=== PATIENT | male | born 1955 ===

== ENCOUNTER → 2018-01-05 | Outpatient (CLI) | payer OTHER ==
[~2018-01-05] VITALS: Ht 152.4 cm; Wt 90.7 kg
[~2018-01-05] MED LIST: ECONAZOLE NITRA15 GM TP; GEMFIBROZIL600 MG; GEMFIBROZIL600 MG PO; LIPITOR40 MG; LIPITOR40 MG PO; MOMETASONE FURO15 G1 TP; ZESTRIL10 M1; ZESTRIL10 M1 PO; ZESTRIL10 MG PO
== END | disposition home or self-care (01) ==
LOC: PPHC 16:39
DX: Z76.0 Encounter for issue of repeat prescription (principal)

== ENCOUNTER 2018-01-16 15:12 | Outpatient (CLI) | payer OTHER | END 2018-01-16 15:16 | disposition home or self-care (01) | LOC: RAD 15:12 | DX: M25.511 Pain in right shoulder (principal) ==

== ENCOUNTER 2018-06-13 07:47 | Outpatient (CLI) | payer OTHER | END 2018-06-13 07:54 | disposition home or self-care (01) | LOC: LAB 07:47 | DX: I10 Essential (primary) hypertension (principal); E78.4 Other hyperlipidemia ==